=== PATIENT | female | born 1965 | race Caucasian/White ===

== ENCOUNTER 2018-03-15 09:23 | Outpatient (CLI) | payer OTHER ==
--- NOTE | 2018-03-16 09:38 | Mammography Report ---
Reason: SCREENING Procedure Date: 03/15/2018 Accession Number: [id number] / [id number] Procedure: DONALDO - Screening Mammo Dig Bilat CPT Code: FULL RESULT: EXAM: Screening Mammo Dig Bilat DATE: 03/15/2018 9:35 AM CLINICAL HISTORY: Screening mammogram TECHNIQUE: Bilateral CC and MLO views were obtained. COMPARISON: Mammogram 02/25/2016 FINDINGS: The breast parenchyma is heterogeneously dense which may limit the sensitivity of mammography. There are benign-appearing lymph nodes. No suspicious masses, clustered microcalcifications, or regions of architectural distortion are identified. IMPRESSION: Benign findings RECOMMENDATION: Routine annual screening unless otherwise clinically indicated. BIRADS CATEGORY 2: Benign findings STANDARD QUALIFYING STATEMENTS: 1. This examination was reviewed with the aid of Computer-Aided Detection (CAD). 2. A negative or benign imaging report should not delay biopsy if clinically suspicious findings are present. Consider surgical consultation if warrented. More than 5% of cancers are not identified by imaging. 3. Dense breasts may obscure an underlying neoplasm.
== END 2018-03-15 09:24 | disposition home or self-care (01) ==
LOC: DI 09:23
PROVIDERS: ATTEND Internal Medicine
DX: Z12.31 Encounter for screening mammogram for malignant neoplasm of breast (principal)
CPT/HCPCS: 77067